=== PATIENT | male | born 1995 | race Caucasian/White ===

== ENCOUNTER 2017-02-16 10:52 | Emergency (ER) | payer SELFPAY ==
--- NOTE | 2017-02-16 12:00 | RADIOLOGY REPORT (SQ) ---
EXAM DESCRIPTION: ELBOW LEFT OVER 2 VIEWS COMPLETED DATE/TIME: 02/16/2017 11:48 am REASON FOR STUDY: snowboarding accident 2 days ago, pain COMPARISON: None. NUMBER OF VIEWS: Four views. TECHNIQUE: AP, lateral, and both oblique radiographic images acquired of the left elbow. LIMITATIONS: None. FINDINGS: MINERALIZATION: Normal. BONES: Minimally displaced radial head fracture. Bones otherwise intact. JOINT: Joint effusion. SOFT TISSUES: No soft tissue swelling. No foreign body. OTHER: No other significant finding. IMPRESSION: RADIAL HEAD FRACTURE WITH JOINT EFFUSION. TECHNICAL DOCUMENTATION: JOB ID: [id number] [employer]- All Rights Reserved
--- NOTE | 2017-02-16 12:01 | RADIOLOGY REPORT (SQ) ---
EXAM DESCRIPTION: WRIST LEFT 3 VIEWS COMPLETED DATE/TIME: 02/16/2017 11:48 am REASON FOR STUDY: snowboarding accident 2 days ago, pain COMPARISON: None. NUMBER OF VIEWS: Three views. TECHNIQUE: AP, lateral, and oblique radiographic images acquired of the left wrist. LIMITATIONS: None. FINDINGS: MINERALIZATION: Normal. BONES: Subtle lucency involving the neck of the scaphoid which could represent a nondisplaced fractur e. Bones otherwise intact. SOFT TISSUES: No soft tissue swelling. No foreign body. OTHER: No other significant finding. IMPRESSION: POSSIBLE NONDISPLACED SCAPHOID WAIST FRACTURE. RECOMMEND CORRELATION WITH POINT TENDERN ESS AND ATTENTION ON FOLLOW-UP RADIOGRAPHS. TECHNICAL DOCUMENTATION: JOB ID: [id number] [employer]- All Rights Reserved
--- NOTE | 2017-02-16 12:10 | ER Document Report ---
ED Extremity Problem, Upper - General Chief Complaint: Arm Pain Stated Complaint: FALL/LEFT ARM PAIN Time Seen by Provider: 02/16/17 11:14 Mode of Arrival: Ambulatory Information source: Patient Notes: Patient is a 21-year-old male who presents to the ER today for left elbow pain 2 days after snowboarding accident where he fell, catching himself with the left hand first with his hand outstretched. Patient states that he had some pain to the hand but went to go "[place] anyway." Patient states that he fell again, trying to protect the hand so he put his elbow out and fell directly onto the left elbow. Patient states that he was not too concerned about it but that it is painful and he noticed bruising yesterday to the left elbow and forearm. Patient denies any numbness or tingling anywhere. He states that he cannot fully extend the arm at the elbow. TRAVEL OUTSIDE OF THE [place] IN LAST 30 DAYS: No - Related Data Allergies/Adverse Reactions: No Known Allergies Allergy (Verified 02/16/17 10:52) Past Medical History - General Information source: Patient - Social History Smoking Status: Never Smoker Frequency of alcohol use: Occasional Drug Abuse: None Family History: Reviewed & Not Pertinent Patient has suicidal ideation: No Patient has homicidal ideation: No Renal/ Medical History: Denies: Hx Peritoneal Dialysis - Immunizations Immunizations up to date: Yes Review of Systems - Review of Systems Constitutional: No symptoms reported EENT: No symptoms reported Cardiovascular: No symptoms reported Respiratory: No symptoms reported Gastrointestinal: No symptoms reported Genitourinary: No symptoms reported Male Genitourinary: No symptoms reported Musculoskeletal: See HPI Skin: See HPI Hematologic/Lymphatic: No symptoms reported Neurological/Psychological: No symptoms reported Physical Exam - Vital signs Vitals: Temp Pulse Resp BP Pulse Ox 98.7 F 77 14 147/84 H 98 02/16/17 10:57 02/16/17 10:57 02/16/17 10:57 02/16/17 10:57 02/16/17 10:57 - Notes Notes: PHYSICAL EXAMINATION: GENERAL: Well-appearing and in no acute distress. HEAD: Atraumatic, normocephalic. NECK: Normal range of motion, supple without lymphadenopathy LUNGS: CTAB and equal. No wheezes rales or rhonchi. HEART: Regular rate and rhythm without murmurs EXTREMITIES: left elbow tenderness, ecchymoses, no snuff box tenderness to left hand, decreased range of motion of the left elbow secondary to pain, no pitting edema. No cyanosis. NEUROLOGICAL: Cranial nerves grossly intact. Normal sensory/motor exams. PSYCH: Normal mood, normal affect. SKIN: Warm, Dry, normal turgor, no rashes or lesions noted Course - Re-evaluation Re-evalutation: 02/16/17 18:42 X-ray reveals a radial head fracture with joint effusion of the elbow, possible scaphoid fracture, however clinically patient has no tenderness in this area whatsoever. Patient was splinted in a long-arm posterior splint and placed in a sling. Patient to follow-up with orthopedics as soon as possible. Patient sent home with pain medication. - Vital Signs Vital signs: Temp Pulse Resp BP Pulse Ox 98.3 F 57 L 18 135/87 H 99 02/16/17 13:22 02/16/17 13:22 02/16/17 13:22 02/16/17 13:22 02/16/17 13:22 Discharge - Discharge Clinical Impression: Radial head fracture, closed Qualifiers: Encounter type: initial encounter Fracture alignment: nondisplaced Laterality: left Qualified Code(s): S52.125A - Nondisplaced fracture of head of left radius , initial encounter for closed fracture Scaphoid fracture Qualifiers: Encounter type: initial encounter Scaphoid bone location: unspecified portion of scaphoid Fracture type: closed Fracture alignment: nondisplaced Laterality: left Qualified Code(s): S62.002A - Unspecified fracture of navicular [scaphoid] bone of left wrist, initial encounter for closed fracture Condition: Stable Disposition: HOME, SELF-CARE Additional Instructions: Return immediately for any new or worsening symptoms. Follow up with orthopedic doctor, call tomorrow to make followup appointment. Prescriptions: Oxycodone HCl/Acetaminophen [Percocet 5-325 mg Tablet] 1 - 2 tab PO Q4H PRN #15 tablet PRN Reason: Forms: Return to Work Referrals: ZAID FLORENTINO MD [ACTIVE STAFF] - Follow up as needed
[2017-02-16 13:25] VITALS: BP 135/87
== END 2017-02-16 13:25 | disposition home or self-care (01) ==
LOC: ER 10:52
DX: S52.125A Nondisplaced fracture of head of left radius, initial encounter for closed fracture (principal); S62.002A Unspecified fracture of navicular [scaphoid] bone of left wrist, initial encounter for closed fracture; W19.XXXA Unspecified fall, initial encounter; Y93.23 Activity, snow (alpine) (downhill) skiing, snowboarding, sledding, tobogganing and snow tubing; Y92.828 Other wilderness area as the place of occurrence of the external cause
CPT/HCPCS: 99283